=== PATIENT | male | born 1985 | race Caucasian/White ===

== ENCOUNTER 2025-08-07 17:18 | Observation (INO) ==
[2025-08-07] MEDS: ATROPINE SULFATE 0.1 MG/ML 10ML SYR IV STA (18:12)
[2025-08-07] MEDS: SODIUM CHLORIDE 0.9% 500 ML IV ONE (18:13)
[2025-08-07 18:20] LABS: Hematocrit (blood only) 41.5 % (42.0-52.0); Hemoglobin 14.5 g/dl (14.0-18.0); Immature Granulocytes # (auto) 0.02 K/uL (0.01-0.20); Immature Granulocytes % (auto) 0.2 %; Mean Corpuscular Hemoglobin 31.7 pg (25.0-34.0); Mean Corpuscular Volume 90.6 fL (80.0-100.0); Platelet Count 211 K/uL (130-400); RDW Standard Deviation 40.3 fL (36.4-46.3); Red Blood Count 4.58 M/uL (4.70-6.10); White Blood Count 9.87 K/ul (4.8-10.8)
[2025-08-07] MEDS: ACETAMINOPHEN 1000 MG/100 ML IV IV ONE (18:31)
[2025-08-07] MEDS: OPTIRAY 320 125ml IV ONE (18:41)
[2025-08-07 18:43] LABS: Alanine Aminotransferase 22 U/L (7-52); Albumin Globulin Ratio 1.4 (0.9-2); Albumin Level 4.5 gm/dl (3.4-5.0); Alkaline Phosphatase 78 U/L (34-104); Bilirubin,Total 0.6 mg/dl (0.2-1.0); Blood Urea Nitrogen 11 mg/dl (6-23); Calcium 9.3 mg/dl (8.6-10.3); Carbon Dioxide 29 mmol/L (21-32); Chloride 102 mmol/L (98-107); Creatinine Clr Calc Pharmacy 178.5 ml/min; Globulin 3.3 gm/dl (2.5-4.0); Glucose 101 mg/dl (70-99(Fasting)); Total Protein 7.8 gm/dl (6.0-8.3)
[2025-08-07 18:47] LABS: INR 1.1 (0.9-1.1); Partial Thromboplastin Time 28 Seconds (21-31); Prothrombin Time 11.2 Seconds (9.0-12.0)
[2025-08-07 18:53] LABS: Thyroid Stimulating Hormone 3.326 uIu/ml (0.300-4.500)
--- NOTE | 2025-08-07 19:05 | CT Scan Report ---
Clinical history: Chest pain Technique: Axial computed tomography images were obtained of the chest after the administration of intravenous contrast according to the CT angiogram protocol Findings: There is no definite sign of pulmonary embolism. The lungs appear clear without infiltrate or mass. There is no pleural effusion or pneumothorax. There is no sign of pulmonary fibrosis or other diffuse interstitial process. No endobronchial lesion is seen There is no mediastinal, hilar, or axillary adenopathy. The thoracic aorta appears unremarkable with no sign of aneurysm or dissection. There is no pericardial effusion No fracture is seen. No focal osseous lesion is evident Impression: 1. No definite sign of pulmonary embolism 2. Normal-appearing lungs Electronically signed by Jordan Carrasco 08-07-2025 7:04 PM
--- NOTE | 2025-08-07 19:08 | CT Scan Report ---
Clinical History: Abdominal pain Technique: Axial computed tomography images were obtained of the abdomen and pelvis after the administration of intravenous contrast. No prior CT is available for comparison. Findings: The liver is overall of normal size, attenuation, and contour with no sign of cirrhosis or significant fatty infiltration. No liver mass lesion is seen. The portal vein is patent. There is mild periportal edema within the liver. There are suspected gallstones. There is mild gallbladder wall thickening and the gallbladder is mildly distended. No bile duct dilatation is noted. The spleen is of normal size. No focal splenic lesion is evident. The pancreas appears normal with no sign of acute or chronic pancreatitis and no mass lesion noted. The pancreatic duct is of normal caliber. The adrenal glands appear unremarkable. No definite renal or proximal ureteral calculi are seen on this contrast-enhanced study. There is no hydronephrosis or perinephric stranding. No renal mass lesion is identified. The aorta is of normal caliber. No abdominal adenopathy is seen. There is a small hiatal hernia. Postsurgical changes are seen involving the stomach. There is no sign of small bowel obstruction. The colon appears unremarkable. There is no definite sign of appendicitis. No free intraperitoneal air is identified. There is a minimal amount of free pelvic fluid No distal ureteral or bladder calculi are seen. No bladder mass lesion is evident. The iliac arteries are of normal caliber. No pelvic adenopathy is noted. No fracture is identified. No focal osseous lesion is seen Impression: 1. Suspected acute cholecystitis. A gallbladder ultrasound is recommended for further evaluation 2. Minimal amount of free pelvic fluid 3. Small hiatal hernia ACT 112: Positive. There are findings on this exam that require communication between the performing entity and the patient following Patient Test Result Information Act ([place] ACT 112) guidelines. Electronically signed by Jordan Carrasco 08-07-2025 7:07 PM
--- NOTE | 2025-08-07 19:09 | XRay Report ---
Clinical History: Bradycardia and dizziness Technique: A frontal view of the chest was obtained Findings: There are no confluent pulmonary infiltrates. The heart size is within normal limits. No pleural effusion or pneumothorax is seen. There is no definite pulmonary nodule. No fracture is noted. Impression: No active disease Electronically signed by Jordan Carrasco 08-07-2025 7:09 PM
[2025-08-07 19:22] LABS: Magnesium 1.7 mg/dl (1.7-2.4); Potassium 4.1 mmol/L (3.5-5.1); Sodium 137.0 mmol/L (136-145)
[2025-08-07 19:30] LABS: Lipase 18.0 U/L (11-82)
[2025-08-07] MEDS: ONDANSETRON INJ 2 MG/ML 2 ML VIAL IV STA (19:40)
[2025-08-07] MEDS: MoRPHine SULFATE 4 MG/ML 1 ML CARP\\VIAL IV STA (19:40)
--- NOTE | 2025-08-07 19:59 | Surgery Consultation ---
Date of Consultation August 07, 2025 Assessment & Plan (1) Cholecystitis: I discussed with the treating clinician the emergency department and requested the patient be admitted to the hospitalist service with surgical recommendations as follows: By CT scan it appears that the patient may have cholecystitis; we will get a gallbladder ultrasound for further delineation of the hepatobiliary system Would recommend repeating laboratories in the morning to ensure patient does not have any rise in his LFTs or development of elevated lipase and these have been ordered Recommend initiating antibiotics Provide analgesics Provide antiemetics Hydrate the patient with IV fluids I feel would be acceptable for patient have some clear liquids at the present time but he should remain n.p.o. after midnight tonight We will tentatively plan on having the patient undergo cholecystectomy with Dr. Rendon of [facility] physician with general surgery tomorrow, providing there are no medical contraindications (see below) The treating clinician in the emergency department to draw my attention to the patient's first-degree AV block and the requirement to administer atropine. Will await further input from the medical service to see if they feel that there is any need for further cardiovascular testing prior to the patient undergoing surgical intervention Will use SCDs for DVT prevention, no chemical means until is ascertain when and if the patient undergoes surgical intervention Additional recommendations be forthcoming based on his clinical course as unfolds Addendum: Patient's gallbladder ultrasound reviewed. The gallbladder is noted to be distended with gallstones noted. The gallbladder wall measures 5.1 mm with Jcarlos cholecystic edema, findings suspicious for acute cholecystitis. There is no biliary ductal dilatation History of Present Illness Reason for Consultation: Cholecystitis History of Present Illness This is a 40-year-old male who presented to the emergency department secondary to epigastric abdominal pain. Patient says that this pain began earlier today and did not really correlate with any of his meals. He did report some associat ed chills and sweats but did not have any fevers. He has not had nausea without vomiting. He does note that the pain radiates up into his sternum/chest and also to his back somewhat. Denies the patient if he has been having any postprandial abdominal pain and he does report some abdominal fullness and some minor pain after eating and this has been going on for several weeks usually immediately after eating meals. The patient notes that he has had 1 prior abdominal surgeryas he has had a gastric bypass which she describes as a Pradip-en-Y bypass at [facility] in [place], [place] in December 2021. The patient reports that he has lost 3 to 20 pounds since the surgery. I did question the patient on his day-to-day activities and he reports that he has asthma. He says that he utilizes Advair discus once daily and this enables him to have his asthma well-controlled. He also notes that he has a rescue albuterol inhaler and he is reports that he can go weeks without using it. In addition, the patient notes that he leads a very active lifestyle. He says that with his weight loss he has been to take up running, and he reports he runs between 5 and 7 miles almost every day. He notes that runs this long typically take him approximately 1 hour and when he does run he does not get any chest pain. Since arrival to the hospital the patient has had labs and imaging which independent reviewed. A chest x-ray was performed that showed no evidence of pneumonia. He also underwent a CT scan of the chest that showed no definite evidence of pulmonary emboli. His lungs appeared normal on the study. A CT scan of the abdomen pelvis was performed and there is noted periportal edema within the liver and suspected gallstones with mild gallbladder wall thickening and a mildly distended gallbladder. The bile duct did not appear dilated. CBC revealed white blood cell count platelet count were normal. Hemoglobin was normal and hematocrit was 41.5. Coagulation studies were normal. Chemistry profile showed sodium and potassium as well as the BUN and creatinine were normal. There is no elevation of his LFTs or lipase. A Lyme Disease screen was negative. He did have an EKG that showed that he had first-degree heart block and an incomplete right and right bundle branch block. There is not appear to be any changes indicative of acute ischemia. After discussion with the clinician the emergency department the patient was noted to have bradycardia with heart rate in the 40s and therefore the clinicians in the emergency department administered 0.5 mg of atropine. The patient's heart rate has since been running in the 50s. At the time of my interview the patient was resting comfortably in bed and he was in no distress. Allergies Allergy/AdvReac Type Severity Reaction Status Date / Time nickel Allergy Mild Skin Verified 08/07/25 20:22 irritation polyester fibers Allergy Mild Rash Verified 08/07/25 20:22 Home Medications Medication Instructions Recorded Confirmed Type Bariactric Vitamin 1 cap PO TID 08/07/25 08/07/25 History albuterol sulfate 90 mcg/actuation 2 puff inhalation Q6 PRN Shortness 08/07/25 08/07/25 History aerosol inhaler Of Breath Or Wheezing fluticasone 250 mcg-salmeterol 50 1 inh inhalation BID 08/07/25 08/07/25 History mcg/dose blistr powdr for inhalation levocetirizine 5 mg tablet 5 mg PO DAILY 08/07/25 08/07/25 History (Allergy Relief (levocetirizine)) multivitamin-ferrous 1 tab PO DAILY 08/07/25 08/07/25 History fumarate-folic acid 18 mg-400 mcg tablet (Centrum) simethicone 80 mg chewable tablet 80 mg PO BID PRN Gi Upset 08/07/25 08/07/25 History Patient History Medical History Asthma NO INHALERS USED FOR YEARS Surgical History History of esophagogastroduodenoscopy (EGD) Tawnya-rectal abscess EXCISION X 2 History of tooth extraction Family History Other No family history of adverse response to anesthesia Social History Smoking Status: Former smoker Second Hand Exposure: No; Hx Alcohol Use: No Hx Substance Use: Yes Prescribed Medications: Marijuana Last Used Substance Ot her:: LAST USED YESTERDAY *ADVISED Preferred Language: Serbian Communication Ability: Effective Counseling Specialist Required: No Beliefs That Will Affect Care: None Current Living Situation: Alone Current Living Situation Comment: House with a roommate Feels Safe at Home: Yes Assistive Devices: CPAP and Glasses Assistive Devices Comment: patient admits that he does not use his glasses or cpap Review of Systems Review of Systems: All systems reviewed & are unremarkable except as noted in HPI & below Physical Exam Constitutional: WD/WN, vitals as above Eyes: + anicteric sclerae ENMT: Ears: no hearing impairment and no external ear abnormality Mouth: no oropharynx abnormality Neck: trachea midline Respiratory: normal respiratory effort; no respiratory distress and no labored breathing Cardiovascular: Rate/Rhythm: regular rate and regular rhythm Gastrointestinal (Abdomen): The patient's abdomen is soft without distention. There is no rebound tenderness, guarding, rigidity, or signs of peritonitis. Patient did have pain with palpation in the epigastric area as well as the right upper quadrant. Musculoskeletal: No calf tenderness Skin: no jaundice Neurologic: moves all extremities Psychiatric: A+Ox3, euthymic affect Results & Data Vital Signs (Past 12 Hours) Vital Signs Temp Pulse Pulse Resp BP BP Pulse Ox 08/07/25 19:21 52 L 16 149/81 H 98 08/07/25 18:28 51 L 08/07/25 18:05 98 08/07/25 17:48 52 L 11 L 130/76 98 08/07/25 17:35 36.8 C 61 14 149/88 H 98 O2 Del Method 08/07/25 19:21 Room Air 08/07/25 18:28 08/07/25 18:05 Room Air 08/07/25 17:48 Room Air 08/07/25 17:35 Room Air PG Care Time/CCT Total # of Minutes Spent Total Time Spent with Patient: Total time spent is greater than 50% in coordination of care (as documented) at patient's floor/unit and/or counseling patient: Coding Level of Care Code 52442 OFFICE CONSULT LVL Diagnoses Cholecystitis K81.9
--- NOTE | 2025-08-07 20:21 | History & Physical Report ---
Date of Service August 07, 2025 Assessment & Plan (1) Bradycardia: (2) Cholecystitis: Plan Deric is a 40 y/o male here with hx of gastric bypass surgery and asthma, sent from [facility] to abdominal pain and chest pain. CT abdomen found with acute cholecystitis. Patient on arrival to the ED found with bradycardia. EKG with findings of First degree AV block. Patient was given 5 mg IV atropine. Patient will be admitted for further treatment and possible surgery intervention Acute cholecystitis - Patient with acute onset of right upper and epigastric abdominal pain, and chills since this morning - CT abdomen: Acute cholecystitis - Lab with no leukocytosis or transaminitis - Gallbladder ultrasound ordered, consider Hida scan if negative - surgery consulted - Patient NPO - Place on LR 125 ml/hr - Hydromorphone 0.5 mg Q4hrs for pain prn - tylenol prn - Protonix 40 mg Iv given on admission - CBc, CMP, MAg AM Bradycardia / First degree block - Patient states he's an active runner, run 5-6 miles per day. Denied any SOB or chest pain while running - Atropine 0.5 mg x1 given by ED provider - Labs with no electrolytes abnormalities. Negative troponin - No medications affecting AV conduction at home. . No history of any heart disease, congenital or acquired - Lyme negative. - suspected this is secondary to exercise/ athlete -Continue cardiac monitoring Asthma: continue home inhalers DVT prophylaxis: mechanical due to possible intervention in am Dispo: MEd/ Telemetry History of Present Illness Primary Care Provider: Indigo Islas PA-C Deric is a 40 y/o male here with hx of gastric bypass surgery and asthma, sent from [facility] to abdominal pain and chest pain. Patient went urgent care and was sent here for further evaluation and concerns of PE. Patient sates pain started this morning around 10 am. Pain is locate don epigastric pain and right upper guadrant. Patient have inspirational chest pain as well. Pain not related to meals. Denied nay hx of cardiac disease or arrhythmias. Denied any past epigastric or abdominal pain in the past after meals. 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 denied any chest pain, SOB, or palpitations while running. Patient found with First degree AV block. HR on 40s was given one dose of atropine 0.5 mg. Patient on evaluations with HR 50s. He states his HR is always on 50s. Denied any chest pain or palpitations on my evaluation. Denied any nicotine use. He does use recreational marihuana. Denied nay daily alcohol intake. Denied any dysuria, urgency or frequency, No hemturia or bloody stools. Denied nay cosntipation or diarrhea Allergies Allergy/AdvReac Type Severity Reaction Status Date / Time nickel Allergy Mild Skin Verified 08/07/25 20:22 irritation polyester fibers Allergy Mild Rash Verified 08/07/25 20:22 Home Medications Medication Instructions Recorded Confirmed Type Bariactric Vitamin 1 cap PO TID 08/07/25 08/07/25 History albuterol sulfate 90 mcg/actuation 2 puff inhalation Q6 PRN Shortness 08/07/25 08/07/25 History aerosol inhaler Of Breath Or Wheezing fluticasone 250 mcg-salmeterol 50 1 inh inhalation BID 08/07/25 08/07/25 History mcg/dose blistr powdr for inhalation levocetirizine 5 mg tablet 5 mg PO DAILY 08/07/25 08/07/25 History (Allergy Relief (levocetirizine)) multivitamin-ferrous 1 tab PO DAILY 08/07/25 08/07/25 History fumarate-folic acid 18 mg-400 mcg tablet (Centrum) simethicone 80 mg chewable tablet 80 mg PO BID PRN Gi Upset 08/07/25 08/07/25 History Past Med/Surg History Problem List (Updated 08/07/25 @ 20:37 by CASTILLO Toure) Bradycardia (Acute) Cholecystitis (Acute) Heartburn Encounter for pre-operative examination Morbid obesity (Chronic) Lower extremity edema (Acute) Acquired lymphedema (Acute) Medical History Asthma NO INHALERS USED FOR YEARS Surgical History History of esophagogastroduodenoscopy (EGD) Tawnya-rectal abscess EXCISION X 2 History of tooth extraction Family History Other No family history of adverse response to anesthesia Social History Smoking Status: Never smoker Second Hand Exposure: No; Hx Alcohol Use: No Hx Substance Use: Yes Prescribed Medications: Marijuana Last Used Substance Other:: LAST USED YESTERDAY *ADVISED Preferred Language: Mongolian Rotating Equipment Engineer Required: No Beliefs That Will Affect Care: None Current Living Situation: Alone Feels Safe at Home: Yes Assistive Devices: None Review of Systems Review of Systems: as per hpi Physical Exam Constitutional: WD/WN, vitals as above ENMT: external ear and nose normal, oropharynx normal Respiratory: normal respiratory effort, lungs clear to auscultation Cardiovascular: RRR, no murmur, no edema Gastrointestinal (Abdomen): Percussion/Palpation: + abdomen tender (right upper quadrant, epigastric pain) and abdomen soft; no guarding and abdomen not rigid Skin: no rashes, warm and dry Results & Data Results & Data Vital Signs (Past 12 Hours) Vital Signs Temp Pulse Pulse Resp BP BP Pulse Ox 08/07/25 19:21 52 L 16 149/81 H 98 08/07/25 18:28 51 L 08/07/25 18:05 98 08/07/25 17:48 52 L 11 L 130/76 98 08/07/25 17:35 36.8 C 61 14 149/88 H 98 O2 Del Method 08/07/25 19:21 Room Air 08/07/25 18:28 08/07/25 18:05 Room Air 08/07/25 17:48 Room Air 08/07/25 17:35 Room Air Code Status & VTE Plan VTE Prophylaxis Plan VTE Prophylaxis will be ordered: Yes Supervising Physician Co-Signing Physician Notes Attending addendum: I have physically seen this patient, have supervised the medical residents activities, and agree with the H&P unless as otherwise noted. Assessment and Plan: The patient is a 40-year-old male with past medical history of gastric bypass surgery, asthma, obesity who runs 3 to 7 miles daily 7 days a week. He presents to the emergency department after being seen in urgent care with abdominal pain and chest pain. Workup in the emergency department included a CTA chest PE protocol negative for PE, and CT scan abdomen pelvis which suggested acute cholecystitis. Liver function tests were normal, and gallbladder ultrasound has been ordered. Acute cholecystitis- Patient with acute onset of right upper quadrant and epigastric abdominal pain, and chills since earlier in the morning. CT scan abdomen pelvis suggestive of acute cholecystitis Gallbladder ultrasound was not ordered HIDA scan will be ordered if still questions regarding diagnosis of cholecystitis N.p.o. LR 125 mL/h Acetaminophen 1 g IV every 8 hours as needed for mild pain or fever Hydromorphone 0.5 mg IV every 4 hours as needed moderate to severe pain Pantoprazole 40 mg IV daily Surgery consulted and saw patient while in the ED Zosyn 4.5 g IV x 1 ordered, and continue Zosyn 4.5 g IV every 8 hours Serial laboratories: CBC with differential, chemistry profile, magnesium Bradycardia/first-degree heart block- Patient is an active runner He was given atropine 0.5 mg x 1 by the ED Normal electrolytes Negative troponin. Asthma- Continue fluticasone-albuterol 1 inhalation twice daily, and albuterol HFA 2 puffs every 6 hours as needed - Resident Activity Tracking Resident Involvement: Resident Care Provided Care Provided: Adult Hospital Medicine
--- NOTE | 2025-08-07 20:37 | Emergency Department Note ---
Impression & Plan Cholecystitis, Bradycardia ED Provider Note CHIEF COMPLAINT: Chest pain that radiates to the back HISTORY OF PRESENTING ILLNESS: Patient is a 40-year-old male who presents to the emergency department today for complaints of chest pain that radiates to the back. He reports chest pain that is worse with inspiration. He did have an episode of diaphoresis and chills. He went to urgent care where he had a normal EKG but they referred him here for PE rule out. He does report a history of bariatric surgery about 2 years ago without any complications. He states that he typically runs 5 miles and was only able to run 1 mile due to getting extremely fatigued and shortness of breath. He denies any fevers or chills, upper respiratory symptoms. He denies smoking, recent travel, recent illness, recent surgeries. REVIEW OF SYSTEMS: See HPI for pertinent positives and pertinent negatives. ALLERGIES: See below MEDICATIONS: See below PAST MEDICAL HISTORY: See below PHYSICAL EXAM: VITAL SIGNS - Vital signs and nursing notes were reviewed. GENERAL -40-year-old male appearing his stated age who is in no acute distress. Communicates well with provider and answers questions appropriately. SKIN - Without rashes. HEAD - NC/AT. EYES - PERRL with EOMI bilaterally. Sclera anicteric. Palpebral conjunctiva pink and moist with no injection noted. NECK - Neck with FROM. Supple to palpation. No lymphadenopathy noted. No nuchal rigidity. LUNGS - Chest wall symmetric without accessory muscle use, intercostals retractions, or central cyanosis. Normal vesicular breath sounds CTA B/L. No wheezes, rales, or rhonchi appreciated. CARDIAC - RRR with S1/S2. No murmur, rubs, or gallops appreciated. ABDOMEN - Abdominal contour is without pulsations or visible masses. BS normoactive all four quadrants. No tenderness, palpable masses, hepatosplenomegaly, or ascites noted. EXTREMITIES - No clubbing or peripheral cyanosis. No pretibial edema present. +3/5 radial, posterior tibial, and dorsalis pedis pulses palpated throughout. +5/5 strength noted in UE/LE bilaterally. PSYCH - A&Ox3 and cooperates fully with examiner. Pt is very pleasant and interacts well with examiner. DIFFERENTIAL DIAGNOSIS: Differential diagnosis includes acute coronary syndrome, pulmonary embolism, pneumothorax, pericarditis, myocarditis, endocarditis, anxiety, musculoskeletal pain, GERD, costochondritis, pneumonia, among others. ED COURSE AND MEDICAL DECISION MAKING: HISTORY FROM INDEPENDENT HISTORIAN: History was provided by the patient and his significant other who is at bedside and acts as a secondary historian. MONITOR: Continuous monitoring and evaluation advisor: Order was placed for continuous monitoring and evaluation advisor. Patient was placed on the monitoring and evaluation advisor and continuous pulse ox. Patient was noted to be in normal sinus rhythm at an initial rate of 61 bpm per my interpretation. EKG: EKG was interpreted by myself as as an undetermined rhythm with a second- degree block type I. Rate of 40 bpm. INTERPRETATION OF LABS: I interpreted the labs with full lab results as below in the lab section of this note. Laboratory results pertinent to the emergent complaint are discussed in the MDM section below. The patient was advised to follow up with their PCP and/or specialist(s) for further outpatient monitoring and management of any abnormal results. INTERPRETATION OF IMAGING: Imaging studies were interpreted by myself and read by radiology as per the imaging section of this note. The patient was advised to follow up with their PCP and/or specialist(s) for further outpatient management of any non-emergent abnormal findings. CHRONIC MEDICAL/SOCIAL CONDITIONS AFFECTING CARE: No social concerns were identified as barriers to patients care. ESCALATION OF CARE CONSIDERED: I considered admission on this patient due to bradycardia and cholecystitis. CONSULTATIONS: I had a meaningful discussion about this patient with Dr. Peguero who agrees with my assessment and the treatment plan. I also consulted with Dr. Rendon from general surgery. Admission was sent out to Dr. Mcdonald who accepted the patient for admission. SUMMARY: I examined the patient for complaints of chest pain radiating to the back. A physical exam and history were performed. Nursing notes, EMR, and medication list were personally reviewed. O arrival patient was noted to be bradycardic at 40bpm. EKG showed a second degree type [address] Peguero evaluated patient, atropine 0.5mg was administered with improvement in the patients HR. HR increased to 60-68bpm. Repeat EKG shows a sinus bradycardia with 1st degree AV block at a rate of 57bpm. CBC showed no leukocytosis, anemia, thrombocytopenia. PT/INR, APTT were normal. CMP showed no emergent findings. Lipase was 18. Troponin was 3.6. TSH 3.326. Magnesium was 1.7, phosphorus 3.1. Lyme's negative. CTA of the chest showed no PE. CT of the abdomen and pelvis shows a suspected acute cholecystitis. Patient was given 1 g of Tylenol IV, Zofran 4 mg, 1 L normal saline with improvement in pain and nausea. The patient later was requesting more pain medication and was given morphine 4 mg with significant improvement in pain and discomfort. I discussed all the above findings with patient verbalized understanding. I consulted with Dr. Rendon from general surgery who will plan to see patient tomorrow. Admission request was sent out and Dr. Mcdonald accepted the admission. DIAGNOSIS: Bradycardia, cholecystitis TREATMENT PLAN/DISCHARGE INSTRUCTIONS: Admit to hospital services. The chart was completed utilizing [employer] Speech voice recognition software.Grammatical errors, random word insertions, pronoun errors, and incomplete sentences are an occasional consequence of this system due to software limitations, ambient noise, and hardware issues.Any formal questions or concerns about the content, text, or information contained within the body of this dictation should be directly addressed to the physician for clarification. Past Med/Surg History Problem List (Updated 08/07/25 @ 20:37 by CASTILLO Toure) Bradycardia (Acute) Cholecystitis (Acute) Heartburn Encounter for pre-operative examination Morbid obesity (Chronic) Lower extremity edema (Acute) Acquired lymphedema (Acute) Medical History Asthma NO INHALERS USED FOR YEARS Surgical History History of esophagogastroduodenoscopy (EGD) Tawnya-rectal abscess EXCISION X 2 History of tooth extraction Family History Other No family history of adverse response to anesthesia Social History Second Hand Exposure: No; Hx Alcohol Use: No Hx Substance Use: Yes Prescribed Medications: Marijuana Last Used Substance Other:: LAST USED YESTERDAY *ADVISED Preferred Language: Colombian Communication Ability: Effective Port Surveyor Required: No Beliefs That Will Affect Care: None Current Living Situation: Alone Current Living Situation Comment: House with a roommate Feels Safe at Home: Yes Assistive Devices: CPAP and Glasses Assistive Devices Comment: patient admits that he does not use his glasses or cpap Allergies Allergies Allergy/AdvReac Type Severity Reaction Status Date / Time nickel Allergy Mild Skin Verified 08/08/25 11:02 irritation polyester fibers Allergy Mild Rash Verified 08/08/25 11:02 Home Meds Home Medications Medication Instructions Recorded Confirmed Bariactric Vitamin 1 cap PO TID 08/07/25 08/07/25 albuterol sulfate 90 mcg/actuation 2 puff inhalation Q6 PRN Shortness 08/07/25 08/07/25 aerosol inhaler Of Breath Or Wheezing fluticasone 250 mcg-salmeterol 50 1 inh inhalation BID 08/07/25 08/07/25 mcg/dose blistr powdr for inhalation levocetirizine 5 mg tablet 5 mg PO DAILY 08/07/25 08/07/25 (Allergy Relief (levocetirizine)) multivitamin-ferrous 1 tab PO DAILY 08/07/25 08/07/25 fumarate-folic acid 18 mg-400 mcg tablet (Centrum) simethicone 80 mg chewable tablet 80 mg PO BID PRN Gi Upset 08/07/25 08/07/25 Results & Data (ED) Vital Signs Vital Signs - 24 hr 08/07/25 17:35 08/07/25 17:48 08/07/25 18:05 Temperature 36.8 C Temperature Source Temporal Artery Scan Pulse Rate 61 Pulse Rate [Apical] 52 L Pulse Rhythm [Apical] Pulse Strength [Apical] Respiratory Rate 14 11 L Respiratory Effort / Characteristics Non-Labored Respiratory Depth Normal Respiratory Pattern Blood Pressure 149/88 H Blood Pressure [Right Arm] 130/76 Blood Pressure Mean 108 Blood Pressure Mean [Right Arm] 94 Blood Pressure Position [Right Arm] Pulse Oximetry 98 98 98 Oxygen Delivery Method Room Air Room Air Room Air Sepsis Recent Fever Within 48 Hours No Sepsis New/Unexplained Change in Mental Status N/A Sepsis Action Taken by Nursing No Action Required 08/07/25 18:28 08/07/25 19:21 Temperature Temperature Source Pulse Rate 51 L Pulse Rate [Apical] 52 L Pulse Rhythm [Apical] Regular Pulse Strength [Apical] Normal Respiratory Rate 16 Respiratory Effort / Characteristics Non-Labored Spontaneous Respiratory Depth Normal Respiratory Pattern Regular Blood Pressure Blood Pressure [Right Arm] 149/81 H Blood Pressure Mean Blood Pressure Mean [Right Arm] 103 Blood Pressure Position [Right Arm] Semi-fowlers Pulse Oximetry 98 Oxygen Delivery Method Room Air Sepsis Recent Fever Within 48 Hours Sepsis New/Unexplained Change in Mental Status Sepsis Action Taken by Nursing Laboratory Data 08/08/25 06:11 08/08/25 06:11 Lab Results 08/07/25 08/07/25 08/07/25 Range/Units 17:55 17:58 18:51 WBC 9.87 (4.8-10.8) K/ul RBC 4.58 L (4.70-6.10) M/uL Hgb 14.5 (14.0-18.0) g/dl POC Hgb 14.6 (14.0-18.0) g/dl Hct 41.5 L (42.0-52.0) % POC Hct 43 (42-52) % MCV 90.6 (80.0-100.0) fL MCH 31.7 (25.0-34.0) pg MCHC 34.9 (32.0-36.0) g/dL RDW Std Deviation 40.3 (36.4-46.3) fL RDW Coeff of [place] 12.2 (11.5-14.5) % Plt Count 211 (130-400) K/uL MPV 10.2 (9.4-12.4) fL Immature Gran % (Auto) 0.2 % Neut % (Auto) 79.7 % Lymph % (Auto) 9.5 % [place] % (Auto) 9.2 % Eos % (Auto) 1.2 % Baso % (Auto) 0.2 % Neut # (Auto) 7.86 H (1.40-6.50) K/uL Lymph # (Auto) 0.94 L (1.20-3.40) K/uL [place] # (Auto) 0.91 H (0.11-0.59) K/uL Eos # (Auto) 0.12 (0.00-0.50) K/uL Baso # (Auto) 0.02 (0.00-0.20) K/uL Immature Gran # (Auto) 0.02 (0.01-0.20) K/uL PT 11.2 (9.0-12.0) Seconds INR 1.1 (0.9-1.1) APTT 28 (21-31) Seconds PTT Ratio 1.0 POC Sodium 140 (135-144) mmol/L Sodium TNP 137 POC Potassium 4.1 (3.3-5.0) mmol/L Potassium TNP 4.1 POC Chloride 101 (101-112) mmol/L Chloride 102 (98-107) mmol/L Carbon Dioxide 29 (21-32) mmol/L POC Total CO2 29 (24-31) mmol/L Anion Gap TNP POC Anion Gap 15.0 L (16-25) mmol/L POC BUN 12 (7-18) mg/dl BUN 11 (6-23) mg/dl Creatinine 0.68 (0.6-1.4) mg/dl POC Creatinine 0.7 (0.6-1.3) mg/dl Est Cr Clr Drug Dosing 178.5 ml/min eGFR 121.26 BUN/Creatinine Ratio 16.2 (10-20) Glucose 101 H (70-99(Fasting)) mg/dl POC Glucose (other) 104 H (70-99) mg/dl Calcium 9.3 (8.6-10.3) mg/dl POC Ioniz Calcium Danny 1.15 (1.12-1.32) mmol/l Phosphorus Cancelled 3.1 Magnesium Cancelled 1.7 Total Bilirubin 0.6 (0.2-1.0) mg/dl AST TNP 19 ALT 22 (7-52) U/L Alkaline Phosphatase 78 (34-104) U/L Troponin I High Sens 3.6 (0-20) pg/ml Total Protein 7.8 (6.0-8.3) gm/dl Albumin 4.5 (3.4-5.0) gm/dl Globulin 3.3 (2.5-4.0) gm/dl Albumin/Globulin Ratio 1.4 (0.9-2) Lipase 18 (11-82) U/L TSH 3.326 (0.300-4.500) uIu/ml Lyme Disease Screen Negative (Negative) Administered Medications Fluticasone/Vilanterol (Fluticasone/Vilanterol 200/25mcg 14 Puffs/Inhaler) 1 puffs INH DAILY EBONY Stop: 09/07/25 08:59 Last Admin: 08/08/25 07:25 Dose: 1 puffs Documented By: [facility] Hydromorphone HCl (Hydromorphone Inj 0.5 Mg/0.5 Ml Syr) 0.5 mg IV Q4 PRN PRN Reason: Pain (7-10) Stop: 08/21/25 23:12 Last Admin: 08/08/25 09:05 Dose: 0.5 mg Documented By: Admin: 08/08/25 05:09 Dose: 0.5 mg Documented By: Admin: 08/07/25 23:33 Dose: 0.5 mg Documented By: HARRY Acetaminophen (Ofirmev) 1,000 mg in 100 mls @ 400 mls/hr IV Q8H PRN PRN Reason: Pain or Fever Stop: 08/10/25 23:12 Last Infusion: 08/08/25 03:02 Dose: Infused Documented By: Admin: 08/08/25 02:36 Dose: 400 mls/hr Documented By: HARRY Piperacillin Sod/Tazobactam Sod (Zosyn) 4.5 gm in 100 mls @ 25 mls/hr IV Q8H EBONY; Protocol Stop: 08/18/25 00:14 Last Infusion: 08/08/25 17:08 Dose: Infused Documented By: Admin: 08/08/25 13:36 Dose: 200 mls/hr Documented By: [id number] Infusion: 08/08/25 09:19 Dose: Infused Documented By: [facility] Admin: 08/08/25 05:11 Dose: 25 mls/hr Documented By: HARRY Lactated Ringer's (Lr) 1,000 mls @ 100 mls/hr IV .Q10H EBONY Stop: 08/11/25 16:24 Last Admin: 08/08/25 17:08 Dose: 100 mls/hr Documented By: RICHARD Ondansetron HCl (Ondansetron Inj 2 Mg/Ml 2 Ml Vial) 4 mg IV Q6H PRN PRN Reason: Nausea Stop: 09/06/25 23:12 Last Admin: 08/08/25 05:08 Dose: 4 mg Documented By: HARRY Discontinued Medications Acetaminophen (Acetaminophen 1000 Mg/100 Ml Iv) Confirm Administered Dose 1,000 mg IV .STK-MED ONE Stop: 08/07/25 18:30 Last Admin: 08/07/25 18:31 Dose: 1,000 mg Documented By: LIN Atropine Sulfate (Atropine Sulfate 0.1 Mg/Ml 10ml Syr) 0.5 mg IV NOW STA Stop: 08/07/25 18:08 Last Admin: 08/07/25 18:12 Dose: 0.5 mg Documented By: vasile Bupivacaine HCl/Epinephrine Bitart (Bupivacaine/Epinephrine 0.5% Mpf 1:200,000 30 Ml Vial) Confirm Administered Dose 30 ml .ROUTE .STK-MED ONE Stop: 08/08/25 12:36 Last Admin: 08/08/25 15:23 Dose: 30 ml Documented By: [id number] Hydromorphone HCl (Hydromorphone Inj 0.5 Mg/0.5 Ml Syr) 0.5 mg IV NOW STA Stop: 08/07/25 20:36 Last Admin: 08/07/25 20:45 Dose: 0.5 mg Documented By: FIROELLA Hydromorphone HCl (Hydromorphone Inj 0.5 Mg/0.5 Ml Syr) 0.5 mg IV NOW STA Stop: 08/08/25 12:43 Last Admin: 08/08/25 12:46 Dose: 0.5 mg Documented By: WALLACE Sodium Chloride (Nss) 500 mls @ 999 mls/hr IV .Q31M ONE Stop: 08/07/25 18:37 Last Infusion: 08/07/25 18:50 Dose: Infused Documented By: Admin: 08/07/25 18:13 Dose: 999 mls/hr Documented By: vasile Lactated Ringer's (Lr) 1,000 mls @ 125 mls/hr IV .Q8H [facility] Stop: 08/10/25 20:14 Last Admin: 08/08/25 16:51 Dose: Not Given Documented By: Infusion: 08/08/25 16:51 Dose: Infused Documented By: Admin: 08/08/25 05:05 Dose: 125 mls/hr Documented By: Infusion: 08/08/25 05:05 Dose: Infused Documented By: Admin: 08/07/25 21:26 Dose: 125 mls/hr Documented By: FIORELLA Pantoprazole Sodium (Protonix) 40 mg in 10 mls @ 5 mls/min IV NOW ONE Stop: 08/07/25 20:36 Last Admin: 08/07/25 20:46 Dose: 5 mls/min Documented By: FIORELLA Piperacillin Sod/Tazobactam Sod (Zosyn) 4.5 gm in 100 mls @ 200 mls/hr IV NOW ONE; Protocol Stop: 08/08/25 00:31 Last Infusion: 08/08/25 01:37 Dose: Infused Documented By: Admin: 08/08/25 01:05 Dose: 200 mls/hr Documented By: HARRY Ioversol (Optiray 320 125ml) 115 ml IV ONCE ONE Stop: 08/07/25 18:41 Last Admin: 08/07/25 18:41 Dose: 115 ml Documented By: SAMIRA Morphine Sulfate (Morphine Sulfate 4 Mg/Ml 1 Ml Carp\Vial) 4 mg IV NOW STA Stop: 08/07/25 19:16 Last Admin: 08/07/25 19:40 Dose: 4 mg Documented By: vasile Ondansetron HCl (Ondansetron Inj 2 Mg/Ml 2 Ml Vial) 4 mg IV NOW STA Stop: 08/07/25 19:16 Last Admin: 08/07/25 19:40 Dose: 4 mg Documented By: vasile Imaging Data Radiologist's Impression: Chest X-Ray 08/07/25 18:05 Clinical History: Bradycardia and dizziness Technique: A frontal view of the chest was obtained Findings: There are no confluent pulmonary infiltrates. The heart size is within normal limits. No pleural effusion or pneumothorax is seen. There is no definite pulmonary nodule. No fracture is noted. Impression: No active disease Electronically signed by Jordan Carrasco 08-07-2025 7:09 PM Chest CTA 08/07/25 18:07 Clinical history: Chest pain Technique: Axial computed tomography images were obtained of the chest after the administration of intravenous contrast according to the CT angiogram protocol Findings: There is no definite sign of pulmonary embolism. The lungs appear clear without infiltrate or mass. There is no pleural effusion or pneumothorax. There is no sign of pulmonary fibrosis or other diffuse interstitial process. No endobronchial lesion is seen There is no mediastinal, hilar, or axillary adenopathy. The thoracic aorta appears unremarkable with no sign of aneurysm or dissection. There is no pericardial effusion No fracture is seen. No focal osseous lesion is evident Impression: 1. No definite sign of pulmonary embolism 2. Normal-appearing lungs Electronically signed by Jordan Carrasco 08-07-2025 7:04 PM Abdomen/Pelvis CT 08/07/25 18:30 Clinical History: Abdominal pain Technique: Axial computed tomography images were obtained of the abdomen and pelvis after the administration of intravenous contrast. No prior CT is available for comparison. Findings: The liver is overall of normal size, attenuation, and contour with no sign of cirrhosis or significant fatty infiltration. No liver mass lesion is seen. The portal vein is patent. There is mild periportal edema within the liver. There are suspected gallstones. There is mild gallbladder wall thickening and the gallbladder is mildly distended. No bile duct dilatation is noted. The spleen is of normal size. No focal splenic lesion is evident. The pancreas appears normal with no sign of acute or chronic pancreatitis and no mass lesion noted. The pancreatic duct is of normal caliber. The adrenal glands appear unremarkable. No definite renal or proximal ureteral calculi are seen on this contrast-enhanced study. There is no hydronephrosis or perinephric stranding. No renal mass lesion is identified. The aorta is of normal caliber. No abdominal adenopathy is seen. There is a small hiatal hernia. Postsurgical changes are seen involving the stomach. There is no sign of small bowel obstruction. The colon appears unremarkable. There is no definite sign of appendicitis. No free intraperitoneal air is identified. There is a minimal amount of free pelvic fluid No distal ureteral or bladder calculi are seen. No bladder mass lesion is evident. The iliac arteries are of normal caliber. No pelvic adenopathy is noted. No fracture is identified. No focal osseous lesion is seen Impression: 1. Suspected acute cholecystitis. A gallbladder ultrasound is recommended for further evaluation 2. Minimal amount of free pelvic fluid 3. Small hiatal hernia ACT 112: Positive. There are findings on this exam that require communication between the performing entity and the patient following Patient Test Result Information Act ([place] ACT 112) guidelines. Electronically signed by Jordan Carrasco 08-07-2025 7:07 PM Discharge Plan Visit Data Chief Complaint: Back Injury/Pain Stated Complaint: BACK PAIN, AB PAIN ED Provider: Pete Peguero ED Midlevel Provider: Genevieve Alberto Discharge Problem: Cholecystitis, Bradycardia Patient Disposition: Admitted As Inpatient Condition: Good Discharge Instructions Interventions: ED Discharge Assessment Last Done: 08/07/25 22:56
[2025-08-07] MEDS: HYDROmorphone INJ 0.5 MG/0.5 ML SYR IV STA (20:45)
[2025-08-07] MEDS: PANTOprazole 40 MG/10 ML SYR IV ONE (20:46)
[2025-08-07] MEDS: LACTATED RINGER'S 1,000 ML IV SCH (21:26)
--- NOTE | 2025-08-07 23:02 | Ultrasound Report ---
Exam(s): US GALLBLADDER EXAM: US Abdomen Limited, Gallbladder CLINICAL HISTORY: cholecystitis. TECHNIQUE: Real-time ultrasound of the right upper quadrant with image documentation. COMPARISON: CT abdomen and pelvis performed earlier FINDINGS: Liver: The liver is enlarged and somewhat heterogeneous, measuring 19. 7 cm. The portal vein is patent with flow directed towards the liver. Gallbladder: The gallbladder is prominently distended, as noted on the CTA examination with echogenic subcentimeter gallstones noted layering dependently. The gallbladder wall is prominent measuring up to 5.1 mm with pericholecystic edema. Evaluation for sonographic Christian's sign is limited with reported pain medication status. Common bile duct: No biliary dilatation with the common bile duct measuring 4 mm. No stones. Pancreas: Visualized segments of the pancreas are unremarkable. Right kidney: The right kidney measures 12.1 x 5.7 x 6.1 cm. IMPRESSION: 1. The gallbladder is prominently distended, as noted on the CTA examination with echogenic subcentimeter gallstones noted layering dependently. The gallbladder wall is prominent measuring up to 5.1 mm with pericholecystic edema. Findings are suspicious for acute cholecystitis. 2. No biliary dilatation with the common bile duct measuring 4 mm. 3. The liver is enlarged and somewhat heterogeneous, measuring 19.7 cm. Electronically signed by: Jonny Marie MD 08/07/25 23:00 PM
[2025-08-07] MEDS ORDERED: ALBUTEROL HFA 8 GM INHALER INH PRN (23:13)
[2025-08-07] MEDS ORDERED: HYDROmorphone INJ 0.5 MG/0.5 ML SYR IV PRN (23:13)
[2025-08-07] MEDS ORDERED: POLYETHYLENE (MIRALAX) 17 GM PACK PO PRN (23:13)
[2025-08-07] MEDS: HYDROmorphone INJ 0.5 MG/0.5 ML SYR IV PRN (23:33)
--- NOTE | 2025-08-08 00:31 | Billing Data ---
Date of Service August 08, 2025 Coding Level of Care Code 85030 INT INP/OBS CARE
[2025-08-08] MEDS: PIPERACILLIN/TAZOBACTAM 4.5 GM/100 ML BAG IV ONE (01:05)
[2025-08-08] MEDS: ACETAMINOPHEN 1,000 MG/100 ML VIAL IV PRN (02:36)
[2025-08-08] MEDS: ONDANSETRON INJ 2 MG/ML 2 ML VIAL IV PRN (05:08)
[2025-08-08] MEDS: PIPERACILLIN/TAZOBACTAM 4.5 GM/100 ML BAG IV SCH (05:11)
[2025-08-08 06:48] LABS: Hematocrit (blood only) 40.4 % (42.0-52.0); Hemoglobin 14.3 g/dl (14.0-18.0); Immature Granulocytes # (auto) 0.04 K/uL (0.01-0.20); Immature Granulocytes % (auto) 0.3 %; Mean Corpuscular Hemoglobin 31.8 pg (25.0-34.0); Mean Corpuscular Volume 89.8 fL (80.0-100.0); Platelet Count 183 K/uL (130-400); RDW Standard Deviation 40.9 fL (36.4-46.3); Red Blood Count 4.50 M/uL (4.70-6.10); White Blood Count 13.95 K/ul (4.8-10.8)
[2025-08-08] MEDS: FLUTICASONE/VILANTEROL 200/25MCG 14 PUFFS/INHALER INH SCH (07:25)
[2025-08-08 07:26] LABS: Alanine Aminotransferase 20.0 U/L (7-52); Albumin Globulin Ratio 1.5 (0.9-2); Albumin Level 4.1 gm/dl (3.4-5.0); Alkaline Phosphatase 73.0 U/L (34-104); Anion Gap 8.0 (3-11); Bilirubin,Total 0.9 mg/dl (0.2-1.0); Blood Urea Nitrogen 10.0 mg/dl (6-23); Calcium 9.0 mg/dl (8.6-10.3); Carbon Dioxide 25.0 mmol/L (21-32); Chloride 103.0 mmol/L (98-107); Creatinine Clr Calc Pharmacy 186.2 ml/min; Globulin 2.8 gm/dl (2.5-4.0); Glucose 158.0 mg/dl (70-99(Fasting)); Lipase 11.0 U/L (11-82); Magnesium 1.7 mg/dl (1.7-2.4); Potassium 4.2 mmol/L (3.5-5.1); Sodium 136.0 mmol/L (136-145); Total Protein 6.9 gm/dl (6.0-8.3)
--- NOTE | 2025-08-08 07:29 | Hospitalist Progress Note ---
Date of Service August 08, 2025 Assessment & Plan (1) Bradycardia: (2) Cholecystitis: Plan Deric is a 40 y/o male here with hx of gastric bypass surgery and asthma, sent from urgency care fur to abdominal pain and chest pain. CT abdomen found with acute cholecystitis. Patient on arrival to the ED found with bradycardia. EKG with findings of First degree AV block. Patient was given 5 mg IV atropine. Patient was admitted to gen/surg for further treatment and possible surgery intervention # Acute cholecystitis CT abdomen shows acute cholecystitis along with pt's symptoms, and leukocytosis. Lipase and LFTS remain normal. - Gallbladder ultrasound showed distended gallbladder with pericholecystic edema. No biliary dilatation - Gen surgery consulted, scheduled for surgery this afternoon - Patient NPO - Continued on LR 125 ml/hr - Hydromorphone 0.5 mg Q4hrs for pain prn - tylenol prn - Protonix 40 mg Iv given on admission #Bradycardia / First degree block Initially EKG appears as Second degree heart block (Mobitz I). subsequent EKG appear more as first degree block. Patient states he's an active runner, run 5-6 miles per day. Denied any SOB or chest pain while running. Negative troponin. Electrolytes are normal, lyme negative. No identified meds that would cause AV node blockage. - S/p atropine 0.5 mg x1 given by ED provider - Heart rate has been stable in 40s-50s with stable BP. - Echo returned with EF of 55-60%, normal LV function, no identified valvular abnormalities - Likely AV block is benign finding in setting of well conditioned athletic bradycardia vs vasovagal with vomiting -Continue cardiac monitoring Asthma: continue home inhalers DVT prophylaxis: mechanical due to possible intervention in am Dispo: MEd/ Telemetry Admission and Anticipated Discharge Date Admission Date: August 07, 2025 Supervising Physician Co-Signing Physician Notes I personally examined the patient and verified all thorpe points of history and exam, discussed case, and agree with decision making with Dr Gonzalez Abdominal pain persists. Under reasonable control with morphine. Runs 5-7 miles a day with no worrisome symptoms. Vitals noted, in general he is awake and alert pleasant appears moderately uncomfortable. Breathing unlabored no accessory muscle use good effort. Skin without rashes pallor or icterus. Sinus bradycardia on monitor. 1 EKG shows a Mobitz 1, the other shows sinus bradycardia. Echocardiogram noted, quite reassuring. Acute cholecystitiscurrently on antibiotics and for the OR today. In regards to his bradycardiaI suspect a lot of it is being in good shape/athlete's heartgiven his regular distance running. I also suspect, especially with the Isaias 1, there is probably a degree of bradycardia from enhanced vagal tone from upper GI distress. However, none of this would preclude surgical intervention, nor do I think it would really raise his risk. Otherwise as above. Subjective No acute events overnight. this morning, pt reports he continued with nausea and epigastric pain radiating to his back. Pain meds re helpful, but short lived. Pt is feeling dizzy and vomited this morning. Pt states he is not taking deep breaths due to lower chest and back discomfort. Denies headache, fever/chills, or new myalgias/arthralgias Review of Systems Review of Systems: As per HPI Physical Exam Physical Exam: Gen: Laying in bed, noticeably uncomfortable HENT: Normocephalic, atraumatic. Trachea midline, no thyromegaly Cardio: RRR, no murmurs or clicks. Resp: CTAB, Equal bilateral chest rise, no increased work of breathing GI: Non distended, soft, general tenderness at epigastric and RUQ, hypoactive bowel sounds MSK: Moving all 4 extremities independently Skin: Dry, of normal skin tone, no rashes on exposed skin Neuro: A& O x 3, normal affect Results & Data Results & Data Vital Signs (Past 12 Hours) Vital Signs Temp Pulse Pulse Pulse Resp BP Pulse Ox 08/08/25 07:00 45 L 08/08/25 03:31 36.9 C 45 L 18 123/73 96 08/07/25 23:12 45 L 08/07/25 23:06 36.4 C L 45 L 14 148/76 H 98 08/07/25 22:56 08/07/25 21:00 51 L 20 138/64 95 O2 Del Method 08/08/25 07:00 08/08/25 03:31 Room Air 08/07/25 23:12 08/07/25 23:06 Room Air 08/07/25 22:56 Room Air 08/07/25 21:00 Room Air Resident Activity Tracking Resident Involvement: Resident Care Provided Care Provided: Adult Hospital Medicine
[2025-08-08 07:31] LABS: INR 1.2 (0.9-1.1); Partial Thromboplastin Time 30 Seconds (21-31); Prothrombin Time 12.4 Seconds (9.0-12.0)
--- NOTE | 2025-08-08 07:47 | History & Physical Bridge Note ---
Date of Service August 08, 2025 History & Physical Bridge Note I have examined the patient, reviewed the History & Physical and in the interval since the performance of the History & Physical I have noted the following changes of clinical significance: no changes noted Discussed risks and options. Discussed bleeding infection injury to a bile duct or other organ blood clots etc. I have answered all his questions. We will proceed today with laparoscopic cholecystectomy.
[2025-08-08] MEDS ORDERED: ONDANSETRON INJ 2 MG/ML 2 ML VIAL ONE ×2 (07:58→12:53)
[2025-08-08] MEDS ORDERED: GLYCOPYRROLATE 0.2 MG/ML VIAL ONE (07:58)
[2025-08-08] MEDS ORDERED: NEOSTIGMINE METHYLSULFATE 1 MG/ML 10ML VIAL ONE (07:58)
[2025-08-08] MEDS ORDERED: PROPOFOL IV EMULSION 10 MG/ML 20 ML VIAL IV ONE ×2 (07:58→12:46)
[2025-08-08] MEDS ORDERED: LIDOCAINE 2% 2 ML VIAL/AMP(20MG/ML) INFIL ONE ×2 (07:58→12:46)
[2025-08-08] MEDS ORDERED: DEXAMETHASONE SOD INJ 4 MG/ML VIAL ONE (07:58)
[2025-08-08] MEDS ORDERED: MIDAZOLAM HCL 1 MG/ML 2ML VIAL ONE ×2 (07:59→12:42)
[2025-08-08] MEDS ORDERED: ROCURONIUM BROMIDE 10 MG/ML 5 ML VIAL IV ONE ×2 (07:59→12:46)
--- NOTE | 2025-08-08 09:16 | XCELERA ---
[id number]
--- NOTE | 2025-08-08 09:24 | Electrocardiogram Report ---
Test Reason : Blood Pressure : */* mmHG Vent. Rate : 40 BPM Atrial Rate : 102 BPM P-R Int : * ms QRS Dur : 102 ms QT Int : 440 ms P-R-T Axes : 29 27 26 degrees QTcB Int : 358 ms Sinus bradycardia with 2nd degree A-V block (Mobitz I) Junctional escape beats Abnormal ECG No previous ECGs available Confirmed by Samuel Lane ([id number]) on 08/08/2025 9:24:30 AM Referred By: REFERRED SELF Confirmed By: Samuel Lane
--- NOTE | 2025-08-08 09:26 | Electrocardiogram Report ---
Test Reason : Blood Pressure : */* mmHG Vent. Rate : 57 BPM Atrial Rate : 57 BPM P-R Int : 220 ms QRS Dur : 112 ms QT Int : 416 ms P-R-T Axes : 30 13 28 degrees QTcB Int : 404 ms Sinus bradycardia with 1st degree A-V block U-waves present; r/o electrolyte imbalance Abnormal ECG When compared with ECG of 07-Aug-2025 17:45, (unconfirmed) Significant changes have occurred Confirmed by Samuel Lane ([id number]) on 08/08/2025 9:25:56 AM Referred By: REFERRED SELF Confirmed By: Samuel Lane
[2025-08-08] MEDS ORDERED: ONDANSETRON INJ 2 MG/ML 2 ML VIAL IV PRN ×2 (12:42→12:46)
[2025-08-08] MEDS ORDERED: ATROPINE SULFATE 0.1 MG/ML 10ML SYR IV PRN ×2 (12:42→12:46)
[2025-08-08] MEDS ORDERED: KETAMINE HCL 10MG/ML SYR ONE (12:42)
[2025-08-08] MEDS: HYDROmorphone INJ 0.5 MG/0.5 ML SYR IV STA (12:46)
[2025-08-08] MEDS ORDERED: HYDROmorphone INJ 2 MG/ML SYR/VIAL IV PRN (12:46)
[2025-08-08] MEDS ORDERED: HYDROmorphone INJ 1 MG/ML SYRINGE IV PRN (12:46)
--- NOTE | 2025-08-08 12:46 | Anesthesiology Consultation ---
Date of Service August 08, 2025 Assessment & Plan Chart Review Chart Review: Acceptable Risk for Surgery, Patient NOT seen in Pre Admission Testing and entry level initiated Consults Requested none ASA ASA2 Proposed Anesthesia Anesthesia Type: General Risk / Benefits Reviewed With: PT / POA / Parent / Guardian, Accepts Plan and Informed Consent Obtained History Surgery Operation Date: 08/08/25 07:00 Proposed Procedures p Laparoscopic Cholecystectomy, Possible Open - Jonny Rendon, DO Height/Weight Height: 5 ft 9 in Weight: 109.6 kg Allergies Allergy/AdvReac Type Severity Reaction Status Date / Time nickel Allergy Mild Skin Verified 08/08/25 11:02 irritation polyester fibers Allergy Mild Rash Verified 08/08/25 11:02 Medications Home Medications Medication Instructions Recorded Confirmed Last Taken Bariactric Vitamin 1 cap PO TID 08/07/25 08/07/25 Unknown albuterol sulfate 90 mcg/actuation 2 puff inhalation Q6 PRN Shortness 08/07/25 08/07/25 Unknown aerosol inhaler Of Breath Or Wheezing fluticasone 250 mcg-salmeterol 50 1 inh inhalation BID 08/07/25 08/07/25 Unknown mcg/dose blistr powdr for inhalation levocetirizine 5 mg tablet 5 mg PO DAILY 08/07/25 08/07/25 Unknown (Allergy Relief (levocetirizine)) multivitamin-ferrous 1 tab PO DAILY 08/07/25 08/07/25 Unknown fumarate-folic acid 18 mg-400 mcg tablet (Centrum) simethicone 80 mg chewable tablet 80 mg PO BID PRN Gi Upset 08/07/25 08/07/25 Unknown Active Medications Generic Name Dose Route Start Last Admin Trade Name Freq PRN Reason Stop Dose Admin Fluticasone/Vilanterol 1 puffs 08/08/25 09:00 08/08/25 07:25 Fluticasone/Vilanterol 200/25mcg 14 Puffs/Inhaler INH 09/07/25 08:59 1 puffs DAILY EBONY Administration Hydromorphone HCl 0.5 mg 08/07/25 23:13 08/08/25 09:05 Hydromorphone Inj 0.5 Mg/0.5 Ml Syr IV 08/21/25 23:12 0.5 mg Q4 PRN Administration Pain (7-10) Lactated Ringer's 1,000 mls @ 125 mls/hr 08/07/25 20:15 08/08/25 05:05 Lr IV 08/10/25 20:14 125 mls/hr .Q8H EBONY Administration Acetaminophen 1,000 mg in 100 mls @ 400 mls/hr 08/07/25 23:13 08/08/25 03:02 Ofirmev IV 08/10/25 23:12 Infused Q8H PRN Infusion Pain or Fever Piperacillin Sod/Tazobactam Sod 4.5 gm in 100 mls @ 25 mls/hr 08/08/25 06:00 08/08/25 09:19 Zosyn IV 08/18/25 00:14 Infused Q8H EBONY Infusion Protocol Ondansetron HCl 4 mg 08/07/25 23:13 08/08/25 05:08 Ondansetron Inj 2 Mg/Ml 2 Ml Vial IV 09/06/25 23:12 4 mg Q6H PRN Administration Nausea NPO Date Last Intake of Fluids: 08/07/25 Time Last Intake of Fluids: 21:00 Date Last Intake of Solids: 08/07/25 Time Last Intake of Solids: 10:00 Past Medical History Medical History Asthma NO INHALERS USED FOR YEARS Exercise / Class Metabolic Activity 1 > 8 Run/Swim/Ski/Tennis Past Family History Family History Other No family history of adverse response to anesthesia Past Surgical History Surgical History History of esophagogastroduodenoscopy (EGD) Tawnya-rectal abscess EXCISION X 2 History of tooth extraction Past Anesthesia History No Hx of Anesthesia Complications and No Family Hx of Anesthesia Complications History of PONV No Hx of PONV and No Hx of Motion Sickness Social History Hx Alcohol Use: No Hx Substance Use: Yes substance use type: marijuana Last Used Substance Other:: LAST USED YESTERDAY *ADVISED Review of Systems ROS Unobtainable: All systems reviewed & are unremarkable except as noted in HPI & below Physical Exam Vital Signs Last Vital Signs Temp 37.2 C 08/08/25 11:03 Pulse 45 L 08/08/25 11:03 Resp 18 08/08/25 11:03 BP 153/73 H 08/08/25 11:03 Pulse Ox 96 08/08/25 11:03 O2 Del Method Room Air 08/08/25 11:03 ENMT Mouth: no TMJ abnormality Thyromental Distance: > or= 3.5 Finger Breadths Mallampati Class: II Neck normal visual inspection and trachea midline; neck extension not limited Respiratory normal respiratory effort Auscultation: lungs clear to auscultation bilaterally Cardiovascular Rate/Rhythm: regular rate and regular rhythm Heart Sounds: no murmur Musculoskeletal Spine: normal cervical ROM Extremities: full ROM of extremities Neurologic moves all extremities Psychiatric Orientation: alert and oriented x 3 Testing Laboratory Results 08/08/25 06:11 08/08/25 06:11 PT 12.4 Seconds (9.0-12.0) H 08/08/25 06:11 INR 1.2 (0.9-1.1) H 08/08/25 06:11 APTT 30 Seconds (21-31) 08/08/25 06:11
--- NOTE | 2025-08-08 13:07 | Billing Data ---
Date of Service August 08, 2025 Coding Level of Care Code 69934 SUB INP/OBS CARE
[2025-08-08] MEDS ORDERED: DexMEDEtomidine HCL IV 100 MCG/ML VIAL IV ONE (14:00)
[2025-08-08] MEDS ORDERED: SUGAMMADEX SODIUM 200 MG/2 ML VIAL IV ONE ×2 (14:03)
[2025-08-08] MEDS ORDERED: HYDROmorphone INJ 2 MG/ML SYR/VIAL ONE (15:18)
[2025-08-08] MEDS: BUPIVACAINE/EPINEPHRINE 0.5% MPF 1:200,000 30 ML VIAL ONE (15:23)
--- NOTE | 2025-08-08 16:01 | Operative Report ---
PG Post Operative Report Pre & Post Diagnosis Operation Date: 08/08/25 07:00 Pre-Op Diagnosis: Acute Cholecysitis Post-Op Diagnosis: Acute Cholecysitis I identified the patient and participated in the time-out.: Yes Procedure Operation Date: 08/08/25 07:00 Actual Procedures p Laparoscopic Cholecystectomy(Not Applicable); please use difficulty modifier - Jonny Rendon DO Surgeon Jonny Rendon DO Green House Manager juan manuel Chopra Estimated Blood Loss 25 Findings Consistent with Post-Op Diagnosis Specimens 1. gallbladder 2. gallbladder fluid for gram stain/culture Description of Procedure After informed consent was obtained the patient was taken to the operating room and placed in the supine position. After successful intubation the abdomen was sterilely prepped and draped in usual fashion. A periumbilical incision was made with an 11 blade scalpel and carried down through the soft tissue using electrocautery. The anterior rectus fascia was opened using electrocautery and 2 #0 Vicryl stay sutures were placed. The peritoneum was elevated with hemostats and incised under direct vision using Metzenbaum scissors. A finger sweep was performed and a 12 mm Bonilla trocar was placed. The abdomen was insufflated to 18 mmHg. The laparoscope was inserted and the abdomen was examined in 360. The gallbladder was acutely inflamed with omental wrapping otherwise, no gross abnormalities were identified. A subxiphoid 12 mm port and 2 right upper quadrant 5 mm ports were placed under direct vision. The patient was placed in a reverse Trendelenburg position and slightly airplaned to the left. The gallbladder was too inflamed to grasp. Therefore gallbladder needle was used to drain purulent fluid from it. A portion of this fluid was sent for Gram stain culture and sensitivity. Once we partially drained the gallbladder, the gallbladder was grasped and elevated superiorly and laterally. The dissection was quite tedious due to the severe inflammation. A [place] dissector was used to take down adhesions around the neck of the gallbladder. I was able to first identify the cystic artery. I was able to skeletonize this and clipped it twice proximally once distally and transected. Next I was able to delineate the cystic duct. It was very short and thickened and therefore I opted to use a XAVIER brown cartridge linear stapler to transect it. The gallbladder was removed from the gallbladder fossa with electrocautery. During this process a hole was made in the gallbladder releasing some purulent bile as well as stones in the right upper quadrant. After it was removed, it was placed into an Endo Catch bag. Thorough irrigation was performed. We tediously spent probably 30 minutes extracting all of the spilled stones. At the end of the case there were no visible stones remaining. We thoroughly irrigated the pelvis as well as right upper quadrant. At the end of the procedure there was adequate hemostasis and no evidence of any bile leaks. A final look around the abdomen showed no other abnormalities. The gallbladder and trochars were all removed and the abdomen was desufflated. The fascia of the camera port was closed using 0 Vicryl in a [id number] fashion. All the wounds were irrigated and closed using 4-0 Monocryl. Marcaine was injected around them for postoperative an algesia and skin glue used as a dressing. The patient was awaken extubated and transferred to recovery in stable condition. My physician's lead recreation assistant was present throughout the entire case... helped with prepping the patient. With exposure for trocar placement, as well as retracted the gallbladder throughout the case and also assisted with wound closure and dressing placement. I attest to the content of the Intraoperative Record and any orders documented therein. Any exceptions are noted below.
--- NOTE | 2025-08-08 16:22 | Anesthesiology Progress Note ---
Date of Service August 08, 2025 Anesthesia Post Procedure Vital Signs Vital Signs: Temp Pulse Pulse Pulse Resp BP BP 08/08/25 16:10 37.1 C 64 21 130/60 08/08/25 16:00 37.1 C 64 19 127/60 08/08/25 15:50 70 22 127/56 L 08/08/25 15:40 72 23 128/55 L 08/08/25 15:34 36.3 C L 68 19 126/48 L 08/08/25 11:03 37.2 C 45 L 18 153/73 H 08/08/25 08:05 36.3 C L 60 18 08/08/25 07:00 45 L 08/08/25 03:31 36.9 C 45 L 18 08/07/25 23:12 45 L 08/07/25 23:06 36.4 C L 45 L 14 08/07/25 22:56 08/07/25 21:00 51 L 20 08/07/25 19:21 52 L 16 08/07/25 18:28 51 L 08/07/25 18:05 08/07/25 17:48 52 L 11 L 08/07/25 17:35 36.8 C 61 14 149/88 H BP Pulse Ox O2 Del Method O2 Flow Rate 08/08/25 16:10 94 Nasal Cannula 3 08/08/25 16:00 94 Nasal Cannula 3 08/08/25 15:50 96 Oxymask 6 08/08/25 15:40 94 Oxymask 10 08/08/25 15:34 94 Oxymask 10 08/08/25 11:03 96 Room Air 08/08/25 08:05 133/70 92 Room Air 08/08/25 07:00 08/08/25 03:31 123/73 96 Room Air 08/07/25 23:12 08/07/25 23:06 148/76 H 98 Room Air 08/07/25 22:56 Room Air 08/07/25 21:00 138/64 95 Room Air 08/07/25 19:21 149/81 H 98 Room Air 08/07/25 18:28 08/07/25 18:05 98 Room Air 08/07/25 17:48 130/76 98 Room Air 08/07/25 17:35 98 Room Air Pain Intensity Abdomen: Pain Intensity: 3 Transfer of Care Handoff Completed per policy Notes Mental Status: alert / awake / arousable Patient Amnestic to Procedure: Yes Nausea / Vomiting: adequately controlled Pain: adequately controlled Airway Patency, RR, SpO2: stable & adequate BP & HR: stable & adequate Hydration State: stable & adequate Anesthetic Complications: no major complications apparent and Pt Satisfied with anesthetic care
[2025-08-08] MEDS ORDERED: MoRPHine SULFATE 4 MG/ML 1 ML CARP\\VIAL IV PRN (16:25)
[2025-08-08] MEDS ORDERED: MoRPHine SULFATE 2 MG/ML CARP IV PRN (16:25)
[2025-08-08] MEDS: LACTATED RINGER'S 1,000 ML IV SCH (17:08)
[2025-08-08 19:38] VITALS: RESP 18
[2025-08-09] MEDS: ACETAMINOPHEN 325 MG TAB PO PRN (00:11)
[2025-08-09 03:31] VITALS: O2SAT 95
--- NOTE | 2025-08-09 07:08 | Hospitalist Progress Note ---
Date of Service August 09, 2025 Assessment & Plan (1) Bradycardia: (2) Cholecystitis: Plan Deric is a 40 y/o male here with hx of gastric bypass surgery and asthma, sent from urgency care fur to abdominal pain and chest pain. CT abdomen found with acute cholecystitis. Patient on arrival to the ED found with bradycardia. EKG with findings of First degree AV block. Patient was given 5 mg IV atropine. Patient was admitted to gen/surg for further treatment and possible surgery intervention # Acute cholecystitis CT abdomen shows acute cholecystitis along with pt's symptoms, and leukocytosis. Lipase and LFTS remain normal. - Gallbladder ultrasound showed distended gallbladder with pericholecystic edema. No biliary dilatation - Gen surgery consulted, scheduled for surgery this afternoon - Patient NPO - Continued on LR 125 ml/hr - Hydromorphone 0.5 mg Q4hrs for pain prn - tylenol prn - Protonix 40 mg Iv given on admission #Bradycardia / First degree block Initially EKG appears as Second degree heart block (Mobitz I). subsequent EKG appear more as first degree block. Patient states he's an active runner, run 5-6 miles per day. Denied any SOB or chest pain while running. Negative troponin. Electrolytes are normal, lyme negative. No identified meds that would cause AV node blockage. - S/p atropine 0.5 mg x1 given by ED provider - Heart rate has been stable in 40s-50s with stable BP. - Echo returned with EF of 55-60%, normal LV function, no identified valvular abnormalities - Likely AV block is benign finding in setting of well conditioned athletic bradycardia vs vasovagal with vomiting -Continue cardiac monitoring Asthma: continue home inhalers DVT prophylaxis: mechanical due to possible intervention in am Dispo: MEd/ Telemetry Admission and Anticipated Discharge Date Admission Date: August 07, 2025 Subjective Pt with mild fever overnight. This morning, pt reports Review of Systems Review of Systems: As per HPI Physical Exam Physical Exam: Gen: Laying in bed, noticeably uncomfortable HENT: Normocephalic, atraumatic. Trachea midline, no thyromegaly Cardio: RRR, no murmurs or clicks. Resp: CTAB, Equal bilateral chest rise, no increased work of breathing GI: Non distended, soft, general tenderness at epigastric and RUQ, hypoactive bowel sounds MSK: Moving all 4 extremities independently Skin: Dry, of normal skin tone, no rashes on exposed skin Neuro: A& O x 3, normal affect Results & Data Results & Data Vital Signs (Past 12 Hours) Vital Signs Temp Pulse Pulse Resp BP Pulse Ox O2 Del Method 08/09/25 03:19 37.0 C 57 L 18 119/67 95 Nasal Cannula 08/08/25 22:21 37.6 C H 67 18 129/69 93 Nasal Cannula 08/08/25 22:02 68 08/08/25 19:20 37.5 C 59 L 18 134/74 94 Nasal Cannula O2 Flow Rate 08/09/25 03:19 2 08/08/25 22:21 2 08/08/25 22:02 08/08/25 19:20 2
[2025-08-09 07:24] LABS: Hematocrit (blood only) 40.3 % (42.0-52.0); Hemoglobin 13.9 g/dl (14.0-18.0); Immature Granulocytes # (auto) 0.03 K/uL (0.01-0.20); Immature Granulocytes % (auto) 0.2 %; Mean Corpuscular Hemoglobin 31.3 pg (25.0-34.0); Mean Corpuscular Volume 90.8 fL (80.0-100.0); Platelet Count 186 K/uL (130-400); RDW Standard Deviation 41.1 fL (36.4-46.3); Red Blood Count 4.44 M/uL (4.70-6.10); White Blood Count 12.65 K/ul (4.8-10.8)
[2025-08-09 07:31] VITALS: BP 126/74; TEMP 99
[2025-08-09 07:53] LABS: Alanine Aminotransferase 43.0 U/L (7-52); Albumin Globulin Ratio 1.3 (0.9-2); Albumin Level 3.6 gm/dl (3.4-5.0); Alkaline Phosphatase 59.0 U/L (34-104); Anion Gap 7.0 (3-11); Bilirubin,Total 0.9 mg/dl (0.2-1.0); Blood Urea Nitrogen 10.0 mg/dl (6-23); Calcium 8.8 mg/dl (8.6-10.3); Carbon Dioxide 28.0 mmol/L (21-32); Chloride 102.0 mmol/L (98-107); Creatinine Clr Calc Pharmacy 226.1 ml/min; Globulin 2.7 gm/dl (2.5-4.0); Glucose 109.0 mg/dl (70-99(Fasting)); Potassium 4.0 mmol/L (3.5-5.1); Sodium 137.0 mmol/L (136-145); Total Protein 6.3 gm/dl (6.0-8.3)
--- NOTE | 2025-08-09 09:19 | Surgery Progress Note ---
Date of Service August 09, 2025 Assessment & Plan (1) Cholecystitis: Plan: Postoperative day #1 Doing better than I would have expected Will remove TRE drain. Advance diet. Okay from my standpoint for him to go home. Will write for 7 days of antibiotics. Discharge instructions discussed. Admission and Anticipated Discharge Date Admission Date: August 07, 2025 Subjective Patient seen. Looks great. His preoperative pain is completely resolved. Physical Exam Physical Exam: Alert. No acute distress Abdomen is soft with expected tenderness. Dramatic improvement from yesterday. Wounds look good Results & Data Vital Signs (Past 12 Hours) Vital Signs Temp Pulse Pulse Resp BP Pulse Ox O2 Del Method 08/09/25 07:30 37.2 C 50 L 18 126/74 95 Nasal Cannula 08/09/25 03:19 37.0 C 57 L 18 119/67 95 Nasal Cannula 08/08/25 22:21 37.6 C H 67 18 129/69 93 Nasal Cannula 08/08/25 22:02 68 O2 Flow Rate 08/09/25 07:30 2 08/09/25 03:19 2 08/08/25 22:21 2 08/08/25 22:02 PG Care Time/CCT Total # of Minutes Spent Total Time Spent with Patient: Total time spent is greater than 50% in coordination of care (as documented) at patient's floor/unit and/or counseling patient: Coding Level of Care Code 05977 Post Operative Follow-Up Diagnoses Cholecystitis K81.9
--- NOTE | 2025-08-09 09:59 | Discharge Summary ---
Date of Service August 09, 2025 Admission HPI Per Admitting Provider Deric is a 40 y/o male here with hx of gastric bypass surgery and asthma, sent from urgency care fur to abdominal pain and chest pain. Patient went urgent care and was sent here for further evaluation and concerns of PE. Patient sates pain started this morning around 10 am. Pain is locate don epigastric pain and right upper guadrant. Patient have inspirational chest pain as well. Pain not related to meals. Denied nay hx of cardiac disease or arrhythmias. Denied any past epigastric or abdominal pain in the past after meals. 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 denied any chest pain, SOB, or palpitations while running. Patient found with First degree AV block. HR on 40s was given one dose of atropine 0.5 mg. Patient on evaluations with HR 50s. He states his HR is always on 50s. Denied any chest pain or palpitations on my evaluation. Denied any nicotine use. He does use recreational marihuana. Denied nay daily alcohol intake. Denied any dysuria, urgency or frequency, No hemturia or bloody stools. Denied nay cosntipation or diarrhea Principal Diagnosis Cholecystitis, bradycardia Discharge Exam Gen: Sitting up at EOB, NAD HENT: Normocephalic, atraumatic. Trachea midline, no thyromegaly Cardio: RRR, no murmurs or clicks. Resp: CTAB, Equal bilateral chest rise, no increased work of breathing GI: Non distended, soft, general tenderness at abdomen, normoactive bowel sounds MSK: Moving all 4 extremities independently Skin: Dry, of normal skin tone, no rashes on exposed skin, incision sites dry and non draining. TRE drain in place Neuro: A& O x 3, normal affect, no focal deficits noted Discharge Data Allergies Allergy/AdvReac Type Severity Reaction Status Date / Time nickel Allergy Mild Skin Verified 08/08/25 11:02 irritation polyester fibers Allergy Mild Rash Verified 08/08/25 11:02 Consultations 08/07/25 20:13 ED Decision to Admit Stat 08/07/25 23:13 Consult General Surgery Routine Procedures Performed Operation Date: 08/08/25 07:00 Actual Procedures p Laparoscopic Cholecystectomy(Not Applicable) - Jonny Rendon, Ordered Studies 08/07/25 18:07 CT angio chest PE protocol Stat 08/07/25 18:30 CT Abd and Pelvis [CT abd pelvis IV con only] Stat 08/07/25 19:43 US GB [US gallbladder] Stat Hospital Course (1) Bradycardia: (2) Cholecystitis: Plan Deric is a 40 y/o male here with hx of gastric bypass surgery and asthma, sent from urgency care fur to abdominal pain and chest pain. CT abdomen found with acute cholecystitis. Patient on arrival to the ED found with bradycardia. EKG with findings of First degree AV block. Pt recovering well after cholecystectomy on 08/09. # Acute cholecystitis CT abdomen shows acute cholecystitis along with pt's symptoms, and leukocytosis. Lipase and LFTS remain normal. - Gallbladder ultrasound showed distended gallbladder with pericholecystic edema. No biliary dilatation - Gen surgery consulted, Cholecystectomy completed 08/09 Continue Augmentin at home x7 days Follow up with general surgery after DC - tylenol prn for pain #Bradycardia / First degree block Initially EKG appears as Second degree heart block (Mobitz I). subsequent EKG appear more as first degree block. Patient states he's an active runner, run 5-6 miles per day. Denied any SOB or chest pain while running. Negative troponin. Electrolytes are normal, lyme negative. No identified meds that would cause AV node blockage. - S/p atropine 0.5 mg x1 given by ED provider - Heart rate has been stable in 50s with stable BP. - Echo returned with EF of 55-60%, normal LV function, no identified valvular abnormalities - Likely AV block is benign finding in setting of well conditioned athletic bradycardia vs vasovagal with vomiting Asthma: continue home inhalers DVT prophylaxis: mechanical due to possible intervention in am Total Time Total Time Spent Total Time Spent (In Minutes): <30 Discharge Plan Discharge Items Patient Disposition: Home - Self-Care Reason For Visit: ACUTE CHOLECYSTITIS, BRADYCARDIA Discharge Diagnosis: laparoscopic cholecystectomy Condition on Discharge: Good Activity: Per Instructions section Lifting: No more than 10 pounds Bathing Comment: You may shower; no soaking in tubs/pools x 2 weeks Exercise/Sports: Wait until after follow-up appointment Driving/Machine Use: no driving while taking narcotics for pain Non-emergency contact: Primary Care Provider and Surgeon Call non-emergency contact if: you have any medication questions, your pain is not controlled, you have a fever, your temperature is above 101.5, your wound has increased redness, your wound has increased drainage and your wound pain has increased Follow-up/Referrals: Jonny Rendno, [Surgeon] - (please call to schedule follow up in the office in 2 weeks) Indigo Islas PA-C [Primary Care Provider] - (Please call primary care provider to schedule follow-up visit within 7-10 days.) Diet: Regular Addtl Attending Provider Instructions: SPECIAL CARE INSTRUCTIONS: * You have skin glue over your incisions called dermabond. you may shower with t his on. It will tend to dissolve and fall off within a couple weeks. Do not pick at the skin glue * You may shower . NO soaking in bath tubs, hot tubs, or pools for 2 weeks * No lifting greater than 10lbs. No strenuous exercise until cleared by surgeon. Light walking is accepted. * No driving while taking narcotic pain medication; wait at least 3 days * No drinking alcohol while taking narcotic pain medication * May use Ibuprofen/Tylenol over the counter for pain as tolerated. Do not exceed 3grams of Tylenol per 24 hours * Expect some swelling and bruising. * Diet- you may resume your regular diet Call your doctor if: * Temperature above 101 degrees, nausea/vomiting, fever/chills * Pain not relieved by pain medicine ordered * There is increased drainage or redness from any incision * You have any unanswered questions or concerns [phone]. FOLLOW UP VISIT: If not already scheduled, please call the office for a follow-up visit. Office Addtl [employer] Provider Instructions: You were admitted for cholecystitis and underwent surgery for gallbladder removal. While you were in the ER, it was noted that your heart rate was slow with possible arrhythmia. After cardiac testing, it was determined that your do not have any structural changes or pathology and that your slow heart rate is likely due to your athletic conditioning. An antibiotic, Augmentin was called in to your pharmacy You may resume your home medications Please follow up with your PCP in the next 7-10 days Thank you for allowing us to be a part of your care. Pending Studies at Discharge: Yes Studies:: surgical pathology Stand-Alone Forms: My [facility], Work/School Release, Smoking Cessation Medications and DC Order Prescriptions: New amoxicillin-pot clavulanate 875-125 mg tablet 1 tab PO BID 7 Days Qty: 14 0RF oxycodone 5 mg tablet 5 mg PO Q6H PRN (Reason: pain) Qty: 12 0RF Rx Instructions: Initial therapy post surgery Continued fluticasone propion-salmeterol 250-50 mcg/dose blister with device 1 inh INHALATION BID albuterol sulfate 90 mcg/actuation HFA aerosol inhaler 2 puff INHALATION Q6 PRN (Reason: Shortness Of Breath Or Wheezing) Bariactric Vitamin 1 cap PO TID Centrum 18-400 mg-mcg Tablet 1 tab PO DAILY levocetirizine [Allergy Relief (levocetirizin)] 5 mg Tablet 5 mg PO DAILY simethicone 80 mg Tablet,Chewable 80 mg PO BID PRN (Reason: Gi Upset) Discharge Orders: Discharge Order (Routine); Ordered 08/09/25 Ordered By: Bronwyn Gonzalez Admission Data Admit Date/Time: 08/07/25 20:16 Attending Provider: Emery Courtney Admit Provider: Diego Osborne Primary Care Provider: Indigo Islas Other Providers: Wilmer Leon; Jonny Rendon Other Interventions: Discharge Summary Assessment (RN) Last Done: 08/09/25 11:26 Supervising Physician Co-Signing Physician Notes I personally examined the patient and verified all thorpe points of history and exam, discussed case, and agree with decision making with Dr Gonzalez Feeling much better. Feels up to going home. Discussed postoperative pain control. discussed return to activities. Nothing until after surgical follow- up. Vitals noted, in general he is awake and alert pleasant no distress. HEENT normocephalic atraumatic mucous membranes moist. Breathing unlabored no accessory muscle use good effort. Skin without rashes pallor or icterus. Neuro without focal deficits. Acute cholecystitis Postop, safe/stable for home. 7 days of oral antibiotics per surgical recommendation. In regards to his bradycardiaI suspect a lot of it is being in good shape/athlete's heartgiven his regular distance running. I also suspect, especially with the Mobitz 1, there is probably a degree of bradycardia from enhanced vagal tone from upper GI distress. heart rates improved Otherwise as above. Resident Activity Tracking Resident Involvement: Resident Care Provided Care Provided: Adult [facility]
[2025-08-09 11:27] VITALS: PULSE 61
--- NOTE | 2025-08-09 14:50 | Billing Data ---
Date of Service August 09, 2025 Coding Level of Care Code 85539 IN/OBS DISCH 30 MIN/LESS
--- NOTE | 2025-08-10 08:51 | Coding Query ---
CODING QUERY To promote full compliance with coding requirements relating to patient care, provider participation is requested in all cases of hims coder uncertainty. Please assist us with the question(s) below: Coding Question(s): The Operative Report documents, "The gallbladder was removed from the gallbladder fossa with electrocautery. During this process a hole was made in the gallbladder releasing some purulent bile as well as stones in the right upper quadrant. After it was removed, it was placed into an Endo Catch bag. Thorough irrigation was performed. We tediously spent probably 30 minutes extracting all of the spilled stones. At the end of the case there were no visible stones remaining. We thoroughly irrigated the pelvis as well as right upper quadrant". Please specify below, to determine if this was an intraoperative complication: ( ) this was an Intraoperative Complication ( x ) this was Not an Intraoperative Complication Physician's Response(s): Thank you Camilla Blanton Principal Diagnosis: "that condition established after study, to be chiefly responsible for occasioning the admission of the patient to the hospital for care." Co-Existing Principal Diagnosis: "when two or more diagnoses equally meet the criteria for principal diagnosis as determined by the circumstances of admission, diagnostic work up, and/or therapy provided, and the Alphabetic Index, Tabular List, or another coding guideline does not provide sequencing direction, any one of the diagnoses may be sequenced first." "When the physician has documented what appears to be a current diagnosis in the body of the record, but has not included the diagnosis in the final diagnostic statement, the physician should be asked whether the diagnosis should be added." (Source Coding Clinic 2 QTR90. p3-4) BREEZY
== END 2025-08-09 11:27 | disposition home or self-care (01) ==
LOC: ED 17:18 → INTOOBSV 20:16 → 2N 20:16 → SUATTDRO 20:16 → 2N 22:56